=== PATIENT | male | born 1965 | race Caucasian/White ===

== ENCOUNTER 2017-01-06 15:35 | Inpatient (IN) | payer OTHER ==
[~2017-01-06] VITALS: Ht 182.9 cm; Wt 93.9 kg
[2017-01-06 15:40] VITALS: BP 157/88
[2017-01-06 15:52] LABS: BASO # 0.1 10*3/uL (0.0-0.1); BASO % 0.5 % (0.0-1.0); EOS # 0.1 10*3/uL (0.0-0.4); EOS % 0.7 % (1.0-4.0); HEMATOCRIT 38.9 % (42.0-52.0); HEMOGLOBIN 13.6 g/dl (14.0-18.0); LYMPH # 2.2 10*3/uL (1.3-4.4); LYMPH % 19.8 % (27.0-41.0); MEAN CELL VOLUME 85.7 fl (80.0-94.0); MEAN PLATELET VOLUME 9.4 fl (9.6-12.3); MONO % 9.1 % (3.0-9.0); NEUT # 7.8 10*3/uL (2.3-7.9); NEUT % 69.6 % (47.0-73.0); PLATELET COUNT AUTOMATED 228 10*3/uL (130-400); RED BLOOD COUNT 4.54 10*6/uL (4.50-5.90); RED CELL DISTRI WIDTH 12.3 % (0-14.5); WHITE BLOOD COUNT 11.2 10*3/uL (4.8-10.8)
[2017-01-06 16:06] LABS: ACT PARTIAL THROMBO TIME 25.5 SECONDS (20.8-31.5); INTERNATIONAL NORM RATIO 0.9 (2.0-3.5)
[2017-01-06 16:08] LABS: ALBUMIN 3.5 gm/dl (3.1-4.5); ALKALINE PHOSPHATASE 108 U/L (45-117); BUN 12 mg/dl (7-24); CHLORIDE 104 mmol/L (98-107); CREATININE 1.16 mg/dL (0.70-1.30); MAGNESIUM 2.1 mg/dL (1.5-2.1); POTASSIUM 3.6 mmol/L (3.5-5.1); SGOT/AST 16 IU/L (3-35); SGPT/ALT 16 U/L (12-78); SODIUM 138 mmol/L (136-145); TOTAL PROTEIN 6.8 gm/dL (6.4-8.2)
[2017-01-06 16:09] LABS: TROPONIN I < 0.015 ng/ml (<0.045)
[2017-01-06 17:22] VITALS: BP 111/78
[2017-01-06 17:30] VITALS: BP 145/99
--- NOTE | 2017-01-06 17:30 | NUR ---
A 51, admitted to , under the services of ADA Georges DO with a diagnosis of CHEST PAIN. Chief complaint is CHEST PAIN. Patient arrived via stretcher from ER. Monitor applied. Initial assessment completed. Vital signs taken and recorded. ADA GEORGES DO notified of admission to the unit. Orders received. See assessment for past medical history, medications and allergies. Patient and/or family oriented to unit. [facility] reviewed. Clothing/patient valuable form completed. CHUCK LU
[2017-01-06] MEDS ORDERED: LISINOPRIL20 MG PO (18:13)
[2017-01-06] MEDS ORDERED: FLOMAX0.4 MG PO (18:14)
[2017-01-06] MEDS ORDERED: SIMVASTATIN10 MG PO (18:14)
[2017-01-06] MEDS ORDERED: BUPROPION HCL100 M2 PO (18:18)
[2017-01-06] MEDS ORDERED: OMEPRAZOLE D/R20 MG PO (18:18)
[2017-01-06] MEDS ORDERED: VITAMIN D31000 UNI1 PO (18:20)
[2017-01-06] MEDS ORDERED: VOLTAREN100 GM T (18:22)
[2017-01-06] MEDS ORDERED: REVATIO20 MG PO (18:23)
[2017-01-06] MEDS ORDERED: REFRESH OPTIVE10 M1 OU (18:25)
--- NOTE | 2017-01-06 18:26 | NUR ---
MEDS RECONCILED WITH PT
[2017-01-06 18:27] VITALS: BP 145/99
[2017-01-06 20:00] VITALS: BP 123/77
--- NOTE | 2017-01-06 20:08 | NUR ---
ARTI CONSULTED FOR CP. AFTER HOURS ANSWERING SERVICE WAS CONTACTED. DAVON AT ANSWERING SERVICE STATED SHE WOULD HAVE TO PAGE TO [employer] DOCTOR BECAUSE HE DID NOT ANSWER THE CALL.
--- NOTE | 2017-01-06 23:42 | NUR ---
GIVEN PRN ACETAMINOPHEN FOR HEADACHE. RATES PAIN 6/10.
[2017-01-07] VITALS: BP 132/87
[2017-01-07 05:47] LABS: ALBUMIN 3.2 gm/dl (3.1-4.5); ALKALINE PHOSPHATASE 105 U/L (45-117); BUN 14 mg/dl (7-24); CHLORIDE 105 mmol/L (98-107); CHOLESTEROL 164 mg/dL (<200); CREATININE 1.21 mg/dL (0.70-1.30); FREE T4 0.98 ng/dl (0.76-1.46); HDL CHOLESTEROL 42 mg/dl (40-60); LDL CHOLESTEROL 68 mg/dL (9-159); MAGNESIUM 2.2 mg/dL (1.5-2.1); PHOSPHOROUS 4.1 mg/dL (2.5-4.9); POTASSIUM 3.8 mmol/L (3.5-5.1); SGOT/AST 32 IU/L (3-35); SGPT/ALT 19 U/L (12-78); SODIUM 142 mmol/L (136-145); TOTAL PROTEIN 6.5 gm/dL (6.4-8.2); TRIGLYCERIDES 270 mg/dl (<150); VLDL CHOLESTEROL 54 mg/dL (6-40)
[2017-01-07 05:52] LABS: THYROID STIM HORMONE (HS) 0.975 uIU/ml (0.358-4.75)
[2017-01-07 05:53] LABS: BASO % 0.4 % (0.0-1.0); EOS # 0.2 10*3/uL (0.0-0.4); EOS % 1.8 % (1.0-4.0); HEMATOCRIT 39.3 % (42.0-52.0); HEMOGLOBIN 13.6 g/dl (14.0-18.0); LYMPH # 2.3 10*3/uL (1.3-4.4); LYMPH % 23.1 % (27.0-41.0); MEAN CELL VOLUME 87.7 fl (80.0-94.0); MEAN CORPUSCULAR HGB 30.4 pg (27.0-31.0); MEAN CORPUSCULAR HGB CONC 34.6 g/dl (33.0-37.0); MONO % 10.2 % (3.0-9.0); NEUT # 6.4 10*3/uL (2.3-7.9); NEUT % 64.2 % (47.0-73.0); PLATELET COUNT AUTOMATED 223 10*3/uL (130-400); RED BLOOD COUNT 4.48 10*6/uL (4.50-5.90); RED CELL DISTRI WIDTH 12.4 % (0-14.5); WHITE BLOOD COUNT 9.9 10*3/uL (4.8-10.8)
[2017-01-07 06:09] LABS: ACT PARTIAL THROMBO TIME 26.2 SECONDS (20.8-31.5); INTERNATIONAL NORM RATIO 0.9 (2.0-3.5)
--- NOTE | 2017-01-07 06:38 | NUR ---
24 HR chart check completed.
[2017-01-07 08:00] VITALS: BP 142/90
--- NOTE | 2017-01-07 08:30 | NUR ---
UP IN ROOM WASHING, NO DISTRESS NOTED. STATES HE STILL HAS CHEST PAIN OCCASIONALLY. WILL CONTINUE TO MONITOR. NO DISTRESS NOTED.
[2017-01-07 09:09] LABS: VITAMIN D, 25-HYDROXY 30.2 ng/mL (30-100)
[2017-01-07] MEDS ORDERED: B12,B-12,B 12500 MC1 PO (11:35)
--- NOTE | 2017-01-07 12:30 | NUR ---
DISCHARGED TO HOME IN CARE OF . INSTRUCTIONS AND PERSCRIPTIONS REVIEWED WITH PT. FLU SHOT OFFERED BUT PT REFUSED.
== END 2017-01-07 12:30 | disposition home or self-care (01) | DRG 392 ==
LOC: ED 15:35 → 4E 16:45 → EDHOLD 16:45 → 4E 17:17
PROVIDERS: Emergency Medicine; Hospitalist; ADMIT Internal Medicine
DX: K21.9 Gastro-esophageal reflux disease without esophagitis (principal); E83.41 Hypermagnesemia; I10 Essential (primary) hypertension; N40.0 Benign prostatic hyperplasia without lower urinary tract symptoms; K57.90 Diverticulosis of intestine, part unspecified, without perforation or abscess without bleeding; D64.9 Anemia, unspecified; E78.1 Pure hyperglyceridemia; E53.8 Deficiency of other specified B group vitamins; Z90.49 Acquired absence of other specified parts of digestive tract; Z88.0 Allergy status to penicillin; Z82.49 Family history of ischemic heart disease and other diseases of the circulatory system; Z79.899 Other long term (current) drug therapy

== ENCOUNTER 2024-07-16 16:24 | Emergency (ER) | payer OTHER ==
[~2024-07-16 16:24] MED LIST: B12,B-12,B 12500 MC1 PO; BUPROPION HCL100 M2 PO; FLOMAX0.4 MG PO; LISINOPRIL20 MG PO; OMEPRAZOLE D/R20 MG PO; REFRESH OPTIVE10 M1 OU; REVATIO20 MG PO; SIMVASTATIN10 MG PO; VITAMIN D31000 UNI1 PO; VOLTAREN100 GM T
[2024-07-16] MEDS ORDERED: Acetaminophen/Hydrocodone 5 MG/325 MG TABLET PO ONE (19:20)
[2024-07-16 19:30] LABS: BASO % 0.4 % (0.0-1.0); EOS # 0.2 10*3/uL (0.0-0.4); EOS % 2.4 % (1.0-4.0); HEMATOCRIT 45.5 % (42.0-52.0); MEAN CELL VOLUME 87.5 fl (80.0-94.0); MEAN CORPUSCULAR HGB CONC 34.3 g/dl (33.0-37.0); MEAN PLATELET VOLUME 9.4 fl (9.6-12.3); MONO % 9.8 % (3.0-9.0); NEUT # 6.1 10*3/uL (2.3-7.9); NEUT % 61.9 % (47.0-73.0); PLATELET COUNT AUTOMATED 230 10*3/uL (130-400); RED CELL DISTRI WIDTH 12.2 % (0-14.5); WHITE BLOOD COUNT 9.8 10*3/uL (4.8-10.8)
[2024-07-16 19:51] LABS: BUN 13 mg/dl (9-23); CHLORIDE 101 mmol/L (98-107); POTASSIUM 3.8 mmol/L (3.4-5.1)
[2024-07-16] MEDS ORDERED: CEPHALEXIN500 M1 PO (21:09)
[2024-07-16] MEDS ORDERED: PREDNISONE20 M1 PO (21:09)
[2024-07-16] MEDS ORDERED: methylPREDNISolone sod succ 125 MG VIAL IM ONE (21:10)
[2024-07-16] MEDS ORDERED: CEPHALEXIN 500 MG CAP PO ONE (21:10)
== END 2024-07-16 21:29 | disposition home or self-care (01) ==
LOC: ED 16:24
PROVIDERS: Nurse Practitioner Family
DX: M70.22 Olecranon bursitis, left elbow (principal); E78.5 Hyperlipidemia, unspecified; I10 Essential (primary) hypertension; F41.9 Anxiety disorder, unspecified; Z79.899 Other long term (current) drug therapy; Z88.0 Allergy status to penicillin; Z90.49 Acquired absence of other specified parts of digestive tract; Z98.890 Other specified postprocedural states